=== PATIENT | female | born 1990 | race African-American/Black ===

== ENCOUNTER 2020-02-13 14:38 | Emergency (ER) | payer MEDICAID ==
[~2020-02-13] VITALS: Ht 167.6 cm; Wt 76.0 kg
[2020-02-13] MEDS ORDERED: DIAZEPAM 5 MG TABLET PO ONE (15:15)
[2020-02-13] MEDS ORDERED: KETOROLAC 60MG/2ML VIAL IM ONE (15:15)
[2020-02-13 17:16] VITALS: BP 120/78
== END 2020-02-13 17:16 | disposition home or self-care (01) ==
LOC: ER 15:00
DX: M54.9 Dorsalgia, unspecified (principal); M54.2 Cervicalgia; M54.6 Pain in thoracic spine; M54.5 Low back pain; M54.30 Sciatica, unspecified side; I10 Essential (primary) hypertension; V43.52XA Car driver injured in collision with other type car in traffic accident, initial encounter; Y93.89 Activity, other specified; Y92.410 Unspecified street and highway as the place of occurrence of the external cause; Z88.6 Allergy status to analgesic agent
CPT/HCPCS: 72070; 72100; 72125; 81025; 96372; 99284; J1885